=== PATIENT | female | born 1990 | race Two or more races ===

== ENCOUNTER 2020-03-18 11:42 | Outpatient (REF) | payer OTHER, SELFPAY | END 2020-03-18 11:43 | disposition home or self-care (01) | LOC: HO.LAB 11:42 | PROVIDERS: PCP Internal Medicine; Visit Provider Internal Medicine | DX: Z20.828 Contact with and (suspected) exposure to other viral communicable diseases (principal) | CPT/HCPCS: U0003 ==

== ENCOUNTER 2020-03-27 15:54 | Outpatient (REF) | payer OTHER, SELFPAY | END 2020-03-27 15:55 | disposition home or self-care (01) | LOC: HO.LAB 15:54 | PROVIDERS: Visit Provider Internal Medicine | DX: Z20.828 Contact with and (suspected) exposure to other viral communicable diseases (principal) | CPT/HCPCS: C9803; U0003 ==

== ENCOUNTER 2020-06-06 16:44 | Emergency (ER) | payer OTHER, SELFPAY ==
[2020-06-06 16:53] VITALS: BP 112/73; PULSE 85; RESP 18; TEMP 36.6; O2SAT 100; BMI 30.7
--- NOTE | 2020-06-06 17:47 | ED.GENADULT ---
HPI - General Adult General Chief complaint: General Medical Stated complaint: Sore throat Source: patient Mode of arrival: ambulatory Limitations: language barrier History of Present Illness HPI narrative: 30-year-old female with no significant past medical history presents with symptoms consistent with COVID-19, also has had a COVID-19 positive exposure, her spouse. She complains of intermittent fevers and chills, sore throat, and malaise. Onset (ago): day(s) (1) Severity: moderate Associated symptoms: fever/chills, malaise and other (Sore throat) Treatments prior to arrival: none Related Data Allergies Allergy/AdvReac Type Severity Reaction Status Date / Time No Known Allergies Allergy Verified 06/06/20 17:47 Review of Systems Review of Systems: Constitutional: positive Fever, positive Chills, positive fatigue, positive Malaise ENT/Mouth: positive sore throat, positive runny nose Eyes: No Discharge Cardiovascular: No Chest Pain, No SOB Respiratory: No Cough, No Sputum, No Wheezing, No Smoke Exposure, No Dyspnea Gastrointestinal: No Nausea, No Vomiting, No Diarrhea Genitourinary: no irregular bleeding, No Dysuria, No Urinary Frequency, No Hematuria, No Urinary Incontinence, No Urgency, No Flank Pain, Musculoskeletal: positive Myalgia Skin: No rash Neuro: No Headache Yes all other systems are reviewed and are negative COUNT INCLUDES THE [facility] Past Medical History Attestation statement: The following information was validated with the patient. Source: old records reviewed Social History Social History Advance Directives: No Advance Directives Information Provided: No Physical Exam Vital Signs: Vital Signs: Last Vital Signs Temp 97.9 F 06/06/20 16:53 Pulse 85 06/06/20 16:53 Resp 18 06/06/20 16:53 BP 112/73 06/06/20 16:53 Pulse Ox 100 06/06/20 16:53 Body Mass Index 30.7 Appearance: Alert. Oriented X3. No acute distress. Eyes: Pupils equal, round and reactive to light. ENT: Pharynx normal. Neck: Normal inspection. Neck supple. CVS: Normal heart rate and rhythm. Pulses normal. Respiratory: No respiratory distress. Breath sounds normal. Abdomen: Soft and nontender. Skin: Skin warm and dry. Normal skin color. Normal skin turgor. Extremities: No lower extremity edema. Neuro: No motor deficit. No sensory deficit. Course Course Course Narrative: 30-year-old female presents with COVID like symptoms after COVID exposure. Her significant other is positive for COVID, she presents with sore throat, runny nose, intermittent fevers and chills. Plan of care is to test for COVID-19, and to treat her as if she is positive. Patient agrees with this plan of care, will call her with the results. contract runner utilized for all correspondence. Google translate utilized for discharge instructions. COVID test is positive for her son. Phone call at 10:45 p.m. to update patient. Medical Decision Making Differential Diagnosis Differential Diagnosis: COVID-19, influenza, upper respiratory infection Medical Records Medical records reviewed: Yes I reviewed the patient's medical records. Lab Data Lab results reviewed: Yes I reviewed the patient's lab results. Labs: Lab Results 06/06/20 Range/Units 17:53 Coronavirus (PCR) NEGATIVE (Negative) Influenza Type A (PCR) NEGATIVE (Negative) Influenza Type B (PCR) NEGATIVE (Negative) RSV RNA Qual (PCR) NEGATIVE (Negative) Discharge Plan Discharge Clinical Impression: COVID-19 Patient Disposition: Home, Self-Care Instructions: COVID-19 (Coronavirus Disease 2019) (ED) Additional Instructions: Se le evaluaron para detectar s?ntomas consistentes con la exposici?n positiva a COVID-19 o COVID-19. Por favor, mantenga el aislamiento social seg?n las directrices estatales y federales. Es reed responsabilidad mantener estas directrices. Por favor, alterne Tylenol y Motrin seg?n sea necesario para el manejo del dolor y la fiebre. Los resultados de las pruebas est?n pendientes. Le llamaremos con los resultados. Usted debe tratarse a s? mismo tee si fuera positivo hasta que los resultados de la prueba vuelvan. Shefali por elegir elsa departamento de emergencias para reed evaluaci?n. Por favor, radha un seguimiento con el m?dico de atenci?n primaria seg?n sea necesario. Regrese al servicio de emergencias para cualquier s?ntoma nuevo, preocupante o que empeore. You were evaluated for symptoms consistent with COVID-19 and or COVID-19 positive exposure. Please maintain social isolation per State and Federal guidelines. Is your responsibility to maintain these guidelines. Please alternate Tylenol and Motrin as needed for pain and fever management. Your test results are pending. We will call you with the results. You must treat yourself as if you are positive until your test results come back. Thank you for choosing this emergency department for evaluation. Please follow-up with primary care physician as needed. Return to the emergency department for any new, concerning, or worsening symptoms. Interventions: ED Discharge Assessment Last Done: 06/06/20 18:27 Discharge Date/Time: 06/06/20 18:28
[2020-06-06 19:15] LABS: Influenza A PCR NEGATIVE (Negative); Influenza B PCR NEGATIVE (Negative); Resp Syncy Virus RNA Qual PCR NEGATIVE (Negative); SARS COV2 PCR INHOUSE NEGATIVE (Negative)
== END 2020-06-06 18:28 | disposition home or self-care (01) ==
PROVIDERS: Nurse Practitioner Family; Emergency Provider Internal Medicine; PCP Internal Medicine
DX: U07.1 COVID-19 (principal); R50.9 Fever, unspecified; J02.9 Acute pharyngitis, unspecified
CPT/HCPCS: 0241U; 36415; 99283

== ENCOUNTER 2020-06-11 14:34 | Outpatient (REF) | payer OTHER, SELFPAY | END 2020-06-11 14:35 | disposition home or self-care (01) | LOC: HO.LAB 14:34 | PROVIDERS: PCP Internal Medicine; Visit Provider Internal Medicine | DX: Z20.822 Contact with and (suspected) exposure to COVID-19 (principal) | CPT/HCPCS: 36415; C9803; U0003; U0005 ==

== ENCOUNTER 2022-12-23 16:17 | Outpatient (REF) | payer OTHER, SELFPAY | END 2022-12-23 16:18 | disposition home or self-care (01) | LOC: HO.HHCLNP 16:17 | PROVIDERS: Visit Provider Family Medicine | DX: K21.9 Gastro-esophageal reflux disease without esophagitis (principal) | CPT/HCPCS: 87338 ==

== ENCOUNTER 2023-05-06 10:51 | Outpatient (REF) | payer MEDICAID, SELFPAY ==
[2023-05-06 14:48] LABS: Alanine Aminotransferase 26 U/L (0-31); Albumin Level 4.3 g/dL (3.5-5.0); Alkaline Phosphatase 64 U/L (39-117); Anion Gap 10 (12-20); Aspartate Amino Transferase 17 U/L (5-31); Blood Urea Nitrogen 12 mg/dL (9-16); Calcium 9.4 mg/dL (8.4-10.2); Carbon Dioxide 27 mmol/L (22-29); Chloride 108 mmol/L (96-108); Cholesterol 113 mg/dL (<200); Estimated Glomerular Filt Rate > 60; Glucose Random 100 mg/dL (60-115); HDL Cholesterol 45 mg/dL (>40); LDL Cholesterol Calculated 55 mg/dL (<100); Potassium 4.3 mmol/L (3.3-5.1); Sodium 141 mmol/L (135-145); Triglycerides 68 mg/dL (<150)
[2023-05-06 15:34] LABS: CT PCR NOT DETECTED (Not Detect.); NG PCR NOT DETECTED (Not Detect.)
[2023-05-07 04:21] LABS: ~Hepatitis C Antibody Nonreactive (Nonreactive)
[2023-05-09 17:08] LABS: RPR Rapid Plasma Reagin NON-REACTIVE (NON-REACTIVE)
[2023-05-10 15:39] LABS: HIV RNA PCR Qn Copies Not Detected Copies/mL; HIV RNA PCR Qn Log Copies Not Detected Log cps/mL
== END 2023-05-06 10:52 | disposition home or self-care (01) ==
LOC: HO.HHCL 10:51
PROVIDERS: Visit Provider Nurse Practitioner Family
DX: Z00.00 Encounter for general adult medical examination without abnormal findings (principal); Z11.4 Encounter for screening for human immunodeficiency virus [HIV]
CPT/HCPCS: 0353U; 80053; 80061; 86592; 86803; 87536; 87900

== ENCOUNTER 2023-05-09 16:52 | Outpatient (REF) | payer MEDICAID, SELFPAY ==
[2023-05-10 12:33] LABS: Adenovirus F 40/41 Not Detected (Not Detect.); Astrovirus Not Detected (Not Detect.); Campylobacter Not Detected (Not Detect.); Cryptosporidium Not Detected (Not Detect.); Cyclospora cayetanensis Not Detected (Not Detect.); E. coli EAEC Not Detected (Not Detect.); E. coli EPEC Not Detected (Not Detect.); E. coli ETEC Not Detected (Not Detect.); E. coli STEC Not Detected (Not Detect.); Entamoeba histolytica Not Detected (Not Detect.); Giardia lamblia Not Detected (Not Detect.); Norovirus GI/GII Not Detected (Not Detect.); Plesiomonas shigelloides Not Detected (Not Detect.); Rotavirus A Not Detected (Not Detect.); Salmonella Not Detected (Not Detect.); Sapovirus Not Detected (Not Detect.); Shigella sp./EIEC Not Detected (Not Detect.); Vibrio Not Detected (Not Detect.); Vibrio Cholerae Not Detected (Not Detect.); Yersinia enterocolitica Not Detected (Not Detect.)
== END 2023-05-09 16:53 | disposition home or self-care (01) ==
LOC: HO.HHCLNP 16:52
PROVIDERS: Visit Provider Nurse Practitioner Family
DX: R15.2 Fecal urgency (principal); R15.9 Full incontinence of feces
CPT/HCPCS: 87507

== ENCOUNTER 2025-01-15 14:07 | Outpatient (REF) | payer MEDICAID, SELFPAY ==
--- OUTSIDE RECORDS SUMMARY | 2025-01-15 15:30 | XMS_ITS | Encounter Summary ---
Author Organization [employer] Address [address] [facility] 7t [place] [address] Care Team Providers Care Apparatus Cleaner Name Role Phone Marleny Armas [facility] Primary Care Provider [phone] Reason for Visit * Reason Onset Date Comments Med Refill 03/11/2024 Encounter Details Date Type Department Care Team ([facility] st Contact Info) Description 03/11/2024 Refill [facility] MEDICINE [address] [place], [place] [phone] Jadyn Brown FNP [address] [place] [address] Social History Tobacco Use Types Packs/Day Years Used Date Smoking Tobacco: Never Passive Smoke Exposure: Never Smokeless Tobacco: Never Alcohol Use Standard Drinks/Week Comments Never 0 (1 standard drink = 0.6 oz pur e alcohol) Depression Answer Date Recorded Patient Health Questionnaire-9 Score 3 05/06/2023 Patient Health Questionnaire-9 Score 3 05/06/2023 Last PHQ-9: Questionnaire Data Not on file 0 05/06/2023 Housing Stability Answer Date Recorded What is your housing situation today? I have palmer valencia 04/13/[address] you li ve. Do you have problems with any of the following? None of the above 04/13/2023 Food Insecurity Answer Date Recorded Within the past 12 months, y ou worried that your food would run out before you got money to buy more: Sometimes True 2023 Within the past 12 months,th e food you bought just didn't last and you didn't have enough money to get more: Sometimes True 04/27/2023 Transportation Answer Date Recorded In the past 12 months, has l ack of transportation kept you from medical appts, meetings, work or from getting things needed for daily living? No 04/13/2023 Utilities Answer Date Recorded In the past 12 months, has t he electric, gas, oil or water company threatened to shut off services in your home? I am not sure 05/06/2023 Depression Answer Date Recorded Patient Health Questionnaire-2 Score 2 05/06/2023 Comments No Sex and Gender Information Value Date Recorded Sex Assigned at Female 02/15/2022 10:20 AM EDT Legal Sex Female 10:20 AM EDT Gender Identity Female 12/22/2022 2:42 PM EDT Sexual Orientation Straight 02/16/2024 10 :00 AM EDT documented as of this encounter Plan of Treatment Not on file documented as of this encounter Visit Diagnoses Not on filedocumented in this encounter Additional Health Concerns Assessment Noted Time PHQ-9 Depression Total Score: 3 05/06/19 24 1:08 PM EST documented as of this encounter Care Teams Apparatus Cleaner Relationship Specialty Start Date End Date Marleny Armas FNP [address] [place] [id number] PCP - General Family Medicine 12/20/23 documented as of this encounter
--- OUTSIDE RECORDS SUMMARY | 2025-01-15 15:30 | XMS_ITS | Encounter Summary ---
Author Organization [employer] Address [address] [place] [address] 7 [place] [address] Care Team Providers Care Mail Clerk Bills Name Role Phone Jadyn Brown Primary Care Provider [phone] [facility] DISPLAY DEPARTMENT MANAGER Primary Care Provider Reason for Visit * Reason Onset Date Comments New Patient 12/17/2022 Encounter Details Date Type Department Care Team ([facility] st Contact Info) Description 12/17/2022 Telephone [facility] MEDICINE [address] [place], [place] [phone] Yogi Cohen MD [address] [place] [address] New Patient Social History Tobacco Use Types Packs/Day Years Used Date Smoking Tobacco: Never Assessed Comments Unknown Sex and Gender Information Value Date Recorded Sex Assigned at Female 02/15/2022 10:20 AM EDT Legal Sex Female 10:20 AM EDT Gender Identity Female 12/22/2022 2:42 PM EDT Sexual Orientation Straight 02/16/2024 10 :00 AM EDT documented as of this encounter Miscellaneous Notes * Telephone Encounter - Rasheeda Dobbins - 12/17/2022 1:42 PM EDT Pt has been transfer over to wait list for [employer]. [employer]ECTIVE SINCE 12/17/2022 documented in this encounter Plan of Treatment Not on file documented as of this encounter Visit Diagnoses Not on filedocumented in this encounter Care Teams Mail Clerk Bills Relationship Specialty Start Date End Date Jadyn Brown FNP [address] [place] [address] PCP - General Family Medicine 04/20/23 12/19/23 [place] F[place] [address] [place] [address] PCP - General Family Medicine 12/20/23 documented as of this encounter
--- OUTSIDE RECORDS SUMMARY | 2025-01-15 15:30 | XMS_ITS | Encounter Summary ---
Author Organization [employer] Address [address] [facility] 7t [place] [address] Care Team Providers Care Ethylbenzene Cracking Supervisor Name Role Phone Marleny Armas [facility] Primary Care Provider Reason for Visit * Reason Onset Date Comments Med Refill 03/06/2024 Encounter Details Date Type Department Care Team ([facility] st Contact Info) Description 03/06/2024 Refill [facility] MEDICINE [address] [place], [place] [phone] Jadyn Brown FNP [address] [place] [address] Social History Tobacco Use Types Packs/Day Years [...] documented as of this encounter Care Teams Ethylbenzene Cracking Supervisor Relationship Specialty Start Date End Date Marleny Armas FNP [address] [place] [phone] PCP - General Family Medicine 12/20/23 documented as of this encounter
--- OUTSIDE RECORDS SUMMARY | 2025-01-15 15:30 | XMS_ITS | Clinical Summary ---
Author Organization [employer] [facility] Address [address] [place] [id number] Care Team Providers Care Library Circulation Assistant Name Role Phone Unavailable Primary Care Provider Unavailabl e Social History Tobacco Use Types Packs/Day Years Used Date Smoking Tobacco: Never Assessed Comments Unknown Sex and Gender Information Value Date Recorded Sex Assigned at Not on file Legal Sex Female 12:19 AM EST Gender Identity Not on file Sexual Orientation Not on file Plan of Treatment Health Maintenance Due Date Last Done Comments DTaP,Tdap,and Td Vaccines (1 - Tdap) 02/03/2008 Hepatitis B Vaccines (1 of 3 - 19+ 3-dose series) 02/03/2008 Cervical Cancer Screening: P ap Smear 2010 Depression Screening 04/18/2024 COVID-19 Vaccine (1 - 2023-2 5 season) 2024 Influenza Vaccine (#1) 2024 HIB Vaccines Aged Out No longer eligi ble based on patient's age to complete this topic HPV Vaccines Aged Out No longer eligi ble based on patient's age to complete this topic Hepatitis A Vaccines Aged Out No long er eligible based on patient's age to complete this topic IPV Vaccines Aged Out No longer eligi ble based on patient's age to complete this topic MMR Vaccines Aged Out No longer eligi ble based on patient's age to complete this topic Meningococcal ACWY Vaccine Aged Out N o longer eligible based on patient's age to complete this topic Meningococcal B Vaccine Aged Out No l onger eligible based on patient's age to complete this topic Pneumococcal Vaccine: Pediat rics (0 to 5 Years) and At-Risk Patients (6 to 49 Years) Aged Out No longer eligible b ased on patient's age to complete this topic RSV Immunization Patients Un yaya 20 months Aged Out No longer eligible b ased on patient's age to complete this topic Varicella Vaccines Aged Out No longer eligible based on patient's age to complete this topic
--- OUTSIDE RECORDS SUMMARY | 2025-01-15 15:30 | XMS_ITS | Clinical Summary ---
Author Organization [employer] Address [address] [facility] 7t [place] [address] Care Team Providers Care Supervisor Reinforced Steel Placing Name Role Phone Marleny Armas [facility] Primary Care Provider [phone] Allergies No known active allergies Medications * This document contains information received from the source organization and may not represent a complete record from that organization. Acetaminophen Extra Strength 500 MG tablet 06/07/19 23 Active famotidine (Pepcid) 20 MG tablet TAKE 1 TABLET BY MOUTH TWICE DAILY NEEDED FOR GASTRITIS. AVOID EATING AND DRINKING FOR 10 MINUTES AFTER EACH DOSE. 09/05/19 23 Active cyclobenzaprine (Flexeril) 10 MG tabletIndicatio ns:Neck pain TAKE 1 TABLET BY MOUTH THREE TIMES A DAY FOR 10 DAYS 30 tablet 05/21/19 25 Active escitalopram (Lexapro) 10 MG tabletIndicatio ns:Depression, unspecified depression type Take 1 tablet (10 mg) by mouth Once per day. 90 tablet 3 12/22/19 25 Active omeprazole OTC (PriLOSEC OTC) 20 MG EC tabletIndicatio ns:Dyspepsia Take 1 tablet (20 mg) by mouth before breakfast. Do not crush, chew, or split. 30 tablet 1 12/22/19 25 026 Active escitalopram (Lexapro) 10 MG tabletIndicatio ns:Depression, unspecified depression type Take 1 tablet (10 mg) by mouth Once per day. 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 pylory negative on 12/2022 Referral to GI done 04/13/2023 No improvement with omeprazole or famotidine 20mg Increased famotidine from 20mg to 40mg on 04/13/23 Will follow up with new PCP next month Assessment & Plan (04/13/2023 10:31 AM EST): H. pylory negative on 12/2022 Referral to GI done 04/13/2023 No improvement with omeprazole or famotidine 20mg Increased famotidine from 20mg to 40mg on 04/13/23 Will follow up with new PCP next month Odontogenic cyst 12/22/2022 Overview (12/22/2022): s/p surgical removal 10/06/2021 Dr. Don Veliz DDS, MD Gastroesophageal reflux disease 12/22/2022 Assessment & Plan (12/22/2022 3:40 PM EDT): -Stop Naproxen -Check H pylori. -Restart famotidine. -Call if symptoms do not improve. Resolved Problems Problem Noted Date Diagnosed Date Resolved Date Preventative health care 04/13/2023 Overview (04/13/2023): -next physical exam due after -eye care facilitated by -dental home is Gastritis without bleeding 04/13/2023 1 06/14/2022 Overview (04/13/2023): H. pylory negative on 12/2022 Referral to GI done 04/13/2023 No improvement with omeprazole or famotidine 20mg Increased famotidine from 20mg to 40mg on 04/13/23 Will follow up with new PCP next month Assessment & Plan (04/13/2023 10:30 AM EST): H. pylory negative on 12/2022 Referral to GI done 04/13/2023 No improvement with omeprazole or famotidine 20mg Increased famotidine from 20mg to 40mg on 04/13/23 Will follow up with new PCP next month Encounters Date Type Department Care Team Description 01/15/2025 Telephone [facility] MEDICINE [address] [place] [address] Marleny Armas FNP Lab Orders 12/21/2024 11:30 AM EDT Office Visit [facility] MEDICINE [address] [place] [address] Marleny Armas FNP Depression, unspecified depression type (Primary Dx); Dyspepsia 12/21/2024 Travel 12/20/2024 Telephone [facility] MEDICINE [address] [place] [address] Marleny Armas FNP chart prep 12/14/2024 Travel 11/22/2024 10:15 AM EDT Office Visit [facility] OPTOMETRY [address] [place] [address] Jony, Raquel, OD Regular astigmatism of both eyes (Primary Dx) from Last 3 Months Immunizations Immunization Administration Dates Next Due Hep B, adult 06/20/2023,05/06/2023 Influenza injectable quadriv alent preservative free 05/06/2023 Influenza, IIV3, injectable 01/21/2022,1 ,04/24/2018,01/06,07/10/2013,01/13/2012,03/31/2011 ,05/17/2008 Pfizer Covid-19 Vaccine 12+ 11/12/2020, Pneumococcal Polysaccharide PPSV23 05/17/2008 Tdap 09/26/2020,01/01/2015,04/07/2011 Family History Medical History Relation Name Comments Bone cancer Maternal Grandmother Breast cancer Maternal Grandmother Diabetes type II Maternal Grandmother Heart disease Maternal Grandmother Seizures Maternal Grandmother Breast cancer Mother Thyroid disease Mother Heart attack Paternal Grandfather Relation Name Status Comments Maternal Grandmother Mother Paternal Grandfather Social History Tobacco Use Types Packs/Day Years Used Date Smoking Tobacco: Never Passive Smoke Exposure: Never Smokeless Tobacco: Never Tobacco Cessation:Counseling Given: Not Answered Alcohol Use Standard Drinks/Week Comments Never 0 (1 standard drink = 0.6 oz pur e alcohol) Depression Answer Date Recorded Patient Health Questionnaire-9 Score 2 12/21/2024 Patient Health Questionnaire-9 Score 2 12/21/2024 Last PHQ-9: Questionnaire Data Not on file 0 12/21/2024 Housing Stability Answer Date Recorded What is your housing situation today? I have palmerdimple valencia 05/21/[address] you li ve. Do you have problems with any of the following? None of the above 05/21/2024 Food Insecurity Answer Date Recorded Within the past 12 months, y ou worried that your food would run out before you got money to buy more: Never True 05/21/2024 Within the past 12 months,th e food you bought just didn't last and you didn't have enough money to get more: Never True 06/2024 Transportation Answer Date Recorded In the past 12 months, has l ack of transportation kept you from medical appts, meetings, work or from getting things needed for daily living? No 05/21/2024 Utilities Answer Date Recorded In the past 12 months, has t he electric, gas, oil or water company threatened to shut off services in your home? No 05/21/2024 Depression Answer Date Recorded Patient Health Questionnaire-2 Score 1 12/21/2024 Internet Access Answer Date Recorded Internet Access Q1 Yes 05/21/2024 Internet Access Q2 Not on file 05/21/2024 Comments No Intention Date Recorded No desire to become (finding) 0 08/24/2024 Sex and Gender Information Value Date Recorded Sex Assigned at Female 02/15/2022 10:20 AM EDT Legal Sex Female 10:20 AM EDT Gender Identity Female 12/22/2022 2:42 PM EDT Sexual Orientation Straight 02/16/2024 10 :00 AM EDT Last Filed Vital Signs Vital Sign Reading Time Taken Comments Blood Pressure 100/78 12/21/2024 11:33 AM EDT Pulse 80 12/21/2024 11:33 AM EDT Temperature 36.8 C (98.2 F) 12/21/2024 11:33 AM EDT Respiratory Rate 18 12/21/2024 11:33 AM EDT Oxygen Saturation 100% 05/21/2024 11:12 AM EST Inhaled Oxygen Concentration - - Weight 91.8 kg (202 lb 6.4 oz) 12/21/2024 11:33 AM EDT Height 167.6 cm (5' 6 ) 12/21/2024 11:33 AM EDT Body Mass Index 32.67 12/21/2024 11:33 AM EDT Plan of Treatment Health Maintenance Due Date Last Done Comments HPV Vaccines (1 - 3-dose series) 02/03/2004 Pap Smear 2010 Cervical Cancer Screening 2019 HPV/Cotest 2019 COVID-19 Vaccine ( season) 2024 11/12/2020, 10/22/2020 Influenza Vaccine (#1) 2024 , 01/21/2022, 02/08/2019, Additional history exists Alcohol/Substance Use Screening 05/21/2025 05/21/2024 SDOH Screening 05/21/2025 05/21/2024 Disability Screening 08/24/2025 08/24/2024 Family Planning (PISQ) 08/24/2025 08/24/2024 Hepatitis B Vaccines (3 of 3 - 19+ 3-dose series) 08/24/2025 06/20/2023, 05/06/2023 Postponed from 11/04/2023 (Patient Refused) Depression Screening 12/21/2025 12/21/2024, 12/22/19 Tobacco Screening 12/23/2025 12/23/2024 DTaP/Tdap/Td Vaccines (4 - Td or Tdap) 09/26/2030 09/26/2020, 01/01/2015, 04/07/2011 Zoster Vaccines (1 of 2) 2039 RSV Patients and Patients Aged 60 years or older (1 - 1-dose 75+ series) 02/03/2064 Pneumococcal Vaccine: Pediatrics (0 to 5 Years) and At-Risk Patients (6 to 49) Years Aged Out 05/17/2008 No longer eligible based on patient's age to complete this topic Hepatitis C Screening Completed 05/06/2023 HIB Vaccines Aged Out No longer eligi ble based on patient's age to complete this topic HIV Screening Discontinued Hepatitis A Vaccines Aged Out No long er eligible based on patient's age to complete this topic IPV Vaccines Aged Out No longer eligi ble based on patient's age to complete this topic Meningococcal B Vaccine Aged Out No l onger eligible based on patient's age to complete this topic Meningococcal Vaccine Aged Out No [place] eligible based on patient's age to complete this topic RSV under 20 months Aged Out No longe r eligible based on patient's age to complete this topic Rotavirus Vaccines Aged Out No longer eligible based on patient's age to complete this topic Procedures Procedure Name Priority Date/Time Associated Diagnosis Comments HEPATITIS C AB W/REFL TO HCV RNA, QN, PCR Routine 05/06/2023 10:53 AM EST Preventative health care from Last 3 Months or Most Recently Relevant to Health Maintenance Results * Hepatitis C Antibody with Reflex to HCV, RNA, Quantitative, Real-Time PCR (05/06/2023 10:53 AM EST) Hepatitis C Antibody Nonreactive Nonreactive [facility] Comment:Antibodies to HCV no t detected; does not exclude early acuteHCV infection. Blood Venous blood specimen / Unknown 05/06/2023 10:53 AM EST 05/06/2023 1:22 PM EST Jadyn Brown WELL LOGGING CAPTAIN LAB BLOOD ORDERABLES Final Resu lt [facility] [address] [place] [phone] from Last 3 Months or Most Recently Relevant to Health Maintenance [place] [address] [place] [address] C3 Care Teams Supervisor Reinforced Steel Placing Relationship Specialty Start Date End Date Marleny Armas FNP [address] [place] [phone] PCP - General Family Medicine 12/20/23
--- OUTSIDE RECORDS SUMMARY | 2025-01-15 15:30 | XMS_ITS | Encounter Summary ---
Author Organization [employer] Address [address] [facility] [address] [place] [address] Care Team Providers Care Bakery Deliverer Name Role Phone [place], [facility] [place] Primary Care Provider [phone] Reason for Visit * Reason Onset Date Comments Lab Orders 01/15/2025 Encounter Details Date Type Department Care Team ([facility] st Contact Info) Description 01/15/2025 Telephone [facility] MEDICINE [address] [place], [place] [phone] [place] [facility] [address] [place], [place] [phone] Lab Orders Social History Tobacco Use Types Packs/Day Years [...] housing situation today? I have palmer valencia 05/21/[address] you [...] Q2 Not on file 05/21/2024 Comments No Sex and Gender Information Value Date Recorded Sex Assigned at Female 02/15/2022 10:20 AM EDT Legal Sex Female 10:20 AM EDT Gender Identity Female 12/22/2022 2:42 PM EDT Sexual Orientation Straight 02/16/2024 10 :00 AM EDT documented as of this encounter Miscellaneous Notes * Telephone Encounter - Soraida Alcaraz RN - 01/15/2025 11:43 AM EDT TC returned to pt. Reports h/o tuberculosis testing with negative results. Order placed, pt. Reports she plans to come today and is aware results take 3-5 days. * Telephone Encounter - Levy Lei - 01/15/2025 11:20 AM EDT Tc from pt requesting a TB test order for a job. contact pt when order is ready to be done at [phone] documented in this encounter Plan of Treatment Scheduled Orders Name Type Priority Associated Diagnoses Orde r Schedule T-SPOT .TB Lab Routine Screening examination for pulmonary tuberculosis Expected: 01/15/2025 (Approximate), Expires: 01/15/2026 documented as of this encounter Visit Diagnoses Diagnosis Screening examination for pulmonary tuberculosis documented in this encounter Additional Health Concerns Assessment Noted Time PHQ-9 Depression Total Score: 2 12/22/19 25 11:43 AM EDT documented as of this encounter Care Teams Bakery Deliverer Relationship Specialty Start Date End Date Marleny Armas FNP [address] [place] [id number] PCP - General Family Medicine 12/20/23 documented as of this encounter
--- OUTSIDE RECORDS SUMMARY | 2025-01-15 15:30 | XMS_ITS | Encounter Summary ---
Author Organization [employer] Address [address] [facility] [address] [place] [address] Care Team Providers Care Trading Manager Name Role Phone Chanda [facility] Primary Care Provider [phone] Reason for Visit * Reason Comments Med Refill Encounter Details Date Type Department Care Team ([facility] st Contact Info) Description 08/29/2024 Refill [facility] MEDICINE [address] [place], [place] [phone] [facility] [address] [place], [place] [phone] Depression, unspecified depression type Social History Tobacco Use Types Packs/Day Years Used Date Smoking Tobacco: Never Passive Smoke Exposure: Never Smokeless Tobacco: Never Alcohol Use Standard Drinks/Week Comments Never 0 (1 standard drink = 0.6 oz pur e alcohol) Depression Answer Date Recorded Patient Health Questionnaire-9 Score 8 06/22/2024 Patient Health Questionnaire-9 Score 8 06/22/2024 Last PHQ-9: Questionnaire Data Not on file 0 06/22/2024 Housing Stability Answer Date Recorded What is [...] Date Recorded Patient Health Questionnaire-2 Score 2 06/22/2024 Internet Access Answer Date Recorded Internet Access [...] as of this encounter Visit Diagnoses Diagnosis Depression, unspecified depression type documented in this encounter Additional Health Concerns Assessment Noted Time PHQ-9 Depression Total Score: 8 06/23/19 25 11:23 AM EST documented as of this encounter Care Teams Trading Manager Relationship Specialty Start Date End Date Marleny Armas FNP [address] [place] [id number] PCP - General Family Medicine 12/20/23 documented as of this encounter
--- OUTSIDE RECORDS SUMMARY | 2025-01-15 15:30 | XMS_ITS | Encounter Summary ---
Author Organization [employer] Address [address] [facility] 7t [place] [address] Care Team Providers Care Plant Etiologist Name Role Phone Jadyn Brown Primary Care Provider [phone] [facility] Primary Care Provider [phone] Reason for Visit * Reason Onset Date Comments Med Refill 07/27/2023 Encounter Details Date Type Department Care Team ([facility] st Contact Info) Description 07/27/2023 Refill [facility] MEDICINE [address] [place], [place] [phone] Jadyn Brown FNP [address] [place] [address] Social History Tobacco Use Types Packs/Day Years [...] Time PHQ-9 Depression Total Score: 3 05/06/19 1:08 PM EST documented as of this encounter Care Teams Plant Etiologist Relationship Specialty Start Date End Date Jadyn Brown FNP [address] [place] [address] PCP - General Family Medicine 04/20/23 12/19/23 Marleny Armas FNP [address] [place] [address] PCP - General Family Medicine 12/20/23 documented as of this encounter
--- OUTSIDE RECORDS SUMMARY | 2025-01-15 15:30 | XMS_ITS | Encounter Summary ---
Author Organization [employer] Address [address] [facility] 7 [place] [address] Care Team Providers Care Air Bag Curer Name Role Phone Chanda [facility] Primary Care Provider [phone] Reason for Visit * Reason Onset Date Comments Med Refill 08/28/2024 Encounter Details Date Type Department Care Team ([facility] st Contact Info) Description 08/28/2024 Refill [facility] MEDICINE [address] [place], [place] [phone] [place], [facility] [address] [place], [place] [phone] Neck pain Social History Tobacco Use Types Packs/Day Years [...] as of this encounter Visit Diagnoses Diagnosis Neck pain Cervicalgia documented in this encounter Additional Health Concerns Assessment Noted Time PHQ-9 Depression Total Score: 8 06/23/19 25 11:23 AM EST documented as of this encounter Care Teams Air Bag Curer Relationship Specialty Start Date End Date Marleny Armas FNP [address] [place] [id number] PCP - General Family Medicine 12/20/23 documented as of this encounter
[2025-01-18 00:19] LABS: TS Negative Control Passed; TS Panel A 0; TS Panel B 1; TS Positive Control Passed; TSpotTB Negative (Negative)
== END 2025-01-15 14:08 | disposition home or self-care (01) ==
LOC: HO.HHCL 14:07
PROVIDERS: PCP Registered Nurse; Visit Provider Registered Nurse
DX: Z11.1 Encounter for screening for respiratory tuberculosis (principal)
CPT/HCPCS: 36415; 86481